=== PATIENT | female | born 1970 | race Caucasian/White ===

== ENCOUNTER 2017-01-20 07:50 | Emergency (ER) | payer SELFPAY ==
[2017-01-20 08:10] VITALS: BP 170/95
--- NOTE | 2017-01-20 08:42 | UC ---
Back Pain HPI - HPI Summary HPI Summary: Patient presents with sudden onset of lower back pain. She was at work and stepped down and could hardly walk. She states she had loser thoracic and upper lumbar back pain. She describes it as initially sharp, now more aching and improved. She denies incontinence of bowel or bladder, or saddle anesthesia associated with her pain. She states the pain is not radiating, and denies lower extremity weakness, numbness or tingling. She states the pain is worse with movement and improves as rest. - History of Current Complaint Chief Complaint: UCBackPain Stated Complaint: BACK INJURY Time Seen by Provider: 01/20/17 07:59 Hx Obtained From: Patient Hx Last Menstrual Period: 01/20/17 ?: No Onset/Duration: Sudden Onset Timing: Lasting Hours Severity Initially: Severe Severity Currently: Moderate Back Pain: Is Discrete @ - lower thoracic, upper lumbar at the location of the beltline. Character: Sharp, Aching, Spasmodic Aggravating: Movement, Lifting, Bending, Walking Alleviating: Rest, Position Associated Signs And Symptoms: Positive: Negative - Risk Factors AAA Risk Factors: Negative TAD Risk Factors: Negative Cauda Equina Risk Factors: Negative Epidural Abscess Risk Factors: Negative - Allergies/Home Medications Allergies/Adverse Reactions: Allergies Allergy/AdvReac Type Severity Reaction Status Date / Time Codeine Allergy Nausea And Verified 01/20/17 07:55 Vomiting Home Medications: Home Medications Levetiracetam [Keppra] 75 mg PO 01/20/17 [History] PMH/Surg Hx/FS Hx/Imm Hx Previously Healthy: Yes - Surgical History Surgical History: None - Family History Known Family History: Positive: Other - prostate cancer Family History: prostate cancer - Social History Alcohol Use: Occasionally Substance Use Type: None Smoking Status (MU): Never Smoked Tobacco Review of Systems Musculoskeletal: Arthralgia, Decreased ROM - lumbar back, Myalgia All Other Systems Reviewed And Are Negative: Yes Physical Exam Triage Information Reviewed: Yes Appearance: Pain Distress Vital Signs: Initial Vital Signs Temp 97.2 F 01/20/17 07:55 Pulse 89 01/20/17 07:55 Resp 18 01/20/17 07:55 Pulse Ox 98 01/20/17 07:55 Vital Signs Reviewed: Yes Eye Exam: Normal ENT Exam: Normal Neck exam: Normal Respiratory Exam: Normal Cardiovascular Exam: Normal Musculoskeletal: Positive: Other: - back; inspection,vertebra are in good aligment, without step-offs or deformities, no areas on eccymosis, edema, or erthema. Midline vertebra nontender on palpation. reproducible pain noted on the lateral musculature at the lumbar area. lower extremity strength testing equal 4/5, sensory no deficits noted. Skin Exam: Normal Back Pain Course/Dx - Course Course Of Treatment: Patient presents with complaints of nontraumatic low back pain. Xrays were read by radiologist as negative. Patient was neuro-vasc intact with no evidence of cuadia equina syndrome. She declined pain medication. Advised to take tylenol and advil alternating everey four hours, and RX flexeril as muscle relaxant. She was taken out of work for three days, and if her symtpoms persist beyond that she would need to follow up with her PCP. She verbalized understanding of all the discharge instructions and dischared home in stable condition. - Differential Dx/Diagnosis Differential Diagnosis/HQI/PQRI: Strain, Sprain, Other - vinnie pain Provider Diagnoses: back pain Discharge - Discharge Plan Condition: Stable Disposition: HOME Prescriptions: Cyclobenzaprine TAB* [Flexeril 10 MG TAB*] 10 mg PO TID PRN #14 tab MDD 3 PRN Reason: back pain Patient Education Materials: Acute Low Back Pain (ED) Forms: *Work Release Referrals: Bell Salazar NP [Primary Care Provider] -
--- NOTE | 2017-01-20 08:54 | RAD ---
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 FINDINGS: The vertebra are in normal alignment. No fracture is seen. There is mild loss of intervertebral disc height at the lower thoracic and lumbar lumbar spine. IMPRESSION: Mild degenerative changes of the spine without acute findings.
== END 2017-01-20 09:24 | disposition home or self-care (01) ==
LOC: UCEAST 07:50
DX: M54.5 Low back pain (principal); Z88.5 Allergy status to narcotic agent
CPT/HCPCS: 72110; 99212; G0463

== ENCOUNTER 2017-01-26 10:21 | Emergency (ER) | payer OTHER ==
[2017-01-26 11:18] LABS: Hematocrit 43 % (35-47); Hemoglobin 14.1 g/dl (12.0-16.0); Mean Corpuscular HGB Conc 33 g/dl (31-36); Mean Corpuscular Hemoglobin 27 pg (27-31); Mean Corpuscular Volume 82 fL (80-97); Mean Platelet Volume 9 um3 (7.4-10.4); Red Blood Count 5.22 10^6/ul (4.0-5.4); Red Cell Distribution Width 14 % (10.5-15); White Blood Count 7.6 10^3/ul (3.5-10.8)
[2017-01-26 11:33] LABS: Albumin 3.8 g/dL (3.2-5.2); BUN/Creatinine Ratio 21.4 (8-20); Calcium 9.1 mg/dL (8.6-10.3); EGFR African American 115.4 (>60); EGFR Non-African American 89.7 (>60); Globulin 3.6 g/dL (2-4); Potassium 3.9 mmol/L (3.5-5.0); Total Bilirubin 0.5 mg/dL (0.2-1.0); Total Protein 7.4 g/dL (6.4-8.9)
[2017-01-26 11:35] LABS: Troponin I 0.01 ng/mL (<0.04)
[2017-01-26 12:04] LABS: TSH (Thyroid Stimulating Horm) 4.46 mcIU/mL (0.34-5.60)
[2017-01-26 12:44] LABS: Urine Bilirubin Negative (Negative); Urine Glucose Negative (Negative); Urine Nitrite Negative (Negative)
[2017-01-26 14:22] VITALS: BP 189/98
--- NOTE | 2017-01-26 15:41 | ED ---
Merry Huber Thomas, scribed for Viral Yates MD on 01/26/17 at 1121 . Hypertension - HPI Summary HPI Summary: The pt is a 47 y/o F presenting to the ED after she measured her blood pressure this AM at 223/126. The patient made a visit to her PCP a week ago and she had an elevated BP, so her doctor told her to measure her BP daily. The patient reports that over the last week he she has been measuring her BP daily and it has been progressively increasing until today. Yesterday, she started Lisinopril 20mg. Her PCP performed an EKG, obtained bloodwork, and has ordered an [place] Kidneys. She complains of an aching lower back pain that began suddenly a week ago when she stepped out of a plane but has since improved a little. This pain is worsened on straight leg raises She initially presented to [facility] [place] for this pain and was prescribed muscle relaxers. An incidental finding at [facility] [place] was an elevated BP and she was referred to her PCP. She also complains of a tearing left shoulder pain that began two weeks ago and is worsened when she abducts her arm. She initially took Naproxen for this pain, but she was told to stop taking naproxen by her PCP a week ago due to its effects on her blood pressure. PMHx: epilepsy. PSHx: none. SHx: no smoking, occasional alcohol use, no illicit drug use. FHx: prostate CA. - History of Current Complaint Chief Complaint: EDHypertension Stated Complaint: LT SHOULDER PAIN Time Seen by Provider: 01/26/17 10:35 Hx Obtained From: Patient Hx Last Menstrual Period: 01/20/17 Onset/Duration: Started Weeks Ago - first BP reading 1 week ago, Still Present, Worse Since - progressively over the week Timing: Constant Reported Blood Pressure Prior To Arrival: 223/126 Aggravating Factor(s): Nothing Alleviating Factor(s): Nothing Associated Signs & Symptoms: Other: - POS: L shoulder pain, back pain Current Medications: Other - Started Lisinopril 20mg yesterday. - Allergies/Home Medications Allergies/Adverse Reactions: Allergies Allergy/AdvReac Type Severity Reaction Status Date / Time Codeine Allergy Nausea And Verified 01/20/17 07:55 Vomiting PMH/Surg Hx/FS Hx/Imm Hx Previously Healthy: No Respiratory History: Denies: Hx Cystic Fibrosis Neurological History: Reports: Other Neuro Impairments/Disorders - Hx epilepsy Infectious Disease History: No Infectious Disease History: Denies: Traveled Outside the [place] in Last 30 Days - Family History Known Family History: Positive: Other - Prostate CA Family History: prostate cancer - Social History Alcohol Use: Occasionally Substance Use Type: Reports: None Smoking Status (MU): Never Smoked Tobacco Review of Systems Negative: Fever Positive: Other - POS: elevated BP (223/126) Positive: Other - POS: L shoulder pain, low back pain All Other Systems Reviewed And Are Negative: Yes Physical Exam Triage Information Reviewed: Yes Vital Signs On Initial Exam: Initial Vitals Temp Pulse Resp BP Pulse Ox 97.1 F 91 18 178/110 96 01/26/17 10:24 01/26/17 10:24 01/26/17 10:24 01/26/17 10:24 01/26/17 10:24 Vital Signs Reviewed: Yes Appearance: Positive: Well-Appearing, No Pain Distress, Obese Skin: Positive: Warm, Skin Color Reflects Adequate Perfusion, Dry Head/Face: Positive: Normal Head/Face Inspection Eyes: Positive: Normal ENT: Positive: Normal ENT inspection Neck: Positive: Supple, Nontender Respiratory/Lung Sounds: Positive: Clear to Auscultation, Breath Sounds Present Cardiovascular: Positive: RRR Abdomen Description: Positive: Nontender, Soft Bowel Sounds: Positive: Present Musculoskeletal: Positive: Other - She is tender at the deltoid insertion on the left. She has right paraspinal tenderness with SLR. Neurological: Positive: Normal Psychiatric: Positive: Normal, Affect/Mood Appropriate Diagnostics - Vital Signs Vital Signs Temp Pulse Resp BP Pulse Ox 01/26/17 10:45 97.9 F 94 15 214/91 94 01/26/17 10:24 97.1 F 91 18 178/110 96 - Laboratory Lab Results: Lab Results 01/26/17 01/26/17 01/26/17 Range/Units 11:00 11:00 12:25 WBC 7.6 (3.5-10.8) 10^3/ul RBC 5.22 (4.0-5.4) 10^6/ul Hgb 14.1 (12.0-16.0) g/dl Hct 43 (35-47) % MCV 82 (80-97) fL MCH 27 (27-31) pg MCHC 33 (31-36) g/dl RDW 14 (10.5-15) % Plt Count 254 (150-450) 10^3/ul MPV 9 (7.4-10.4) um3 Neut % (Auto) 62.2 (38-83) % Lymph % (Auto) 28.2 (25-47) % [place] % (Auto) 7.4 (1-9) % Eos % (Auto) 1.6 (0-6) % Baso % (Auto) 0.6 (0-2) % Absolute Neuts (auto) 4.7 (1.5-7.7) 10^3/ul Absolute Lymphs (auto) 2.1 (1.0-4.8) 10^3/ul Absolute Monos (auto) 0.6 (0-0.8) 10^3/ul Absolute Eos (auto) 0.1 (0-0.6) 10^3/ul Absolute Basos (auto) 0 (0-0.2) 10^3/ul Absolute Nucleated RBC 0 10^3/ul Nucleated RBC % 0 Sodium 136 (133-145) mmol/L Potassium 3.9 (3.5-5.0) mmol/L Chloride 104 (101-111) mmol/L Carbon Dioxide 27 (22-32) mmol/L Anion Gap 5 (2-11) mmol/L BUN 15 (6-24) mg/dL Creatinine 0.70 (0.51-0.95) mg/dL Est GFR ( Amer) 115.4 (>60) Est GFR (Non-Af Amer) 89.7 (>60) BUN/Creatinine Ratio 21.4 H (8-20) Glucose 100 (70-100) mg/dL Calcium 9.1 (8.6-10.3) mg/dL Total Bilirubin 0.50 (0.2-1.0) mg/dL AST 14 (13-39) U/L ALT 11 (7-52) U/L Alkaline Phosphatase 63 (34-104) U/L Troponin I 0.01 (<0.04) ng/mL Total Protein 7.4 (6.4-8.9) g/dL Albumin 3.8 (3.2-5.2) g/dL Globulin 3.6 (2-4) g/dL Albumin/Globulin Ratio 1.1 (1-3) TSH 4.46 (0.34-5.60) mcIU/mL Urine Color Yellow Urine Appearance Clear Urine pH 6.0 (5-9) Ur Specific [place] 1.023 (1.010-1.030) Urine Protein Negative (Negative) Urine Ketones Negative (Negative) Urine Blood Negative (Negative) Urine Nitrate Negative (Negative) Urine Bilirubin Negative (Negative) Urine Urobilinogen Negative (Negative) Ur Leukocyte Esterase Negative (Negative) Urine Glucose Negative (Negative) Urine Ascorbic Acid * H (Negative) Result Diagrams: 01/26/17 11:00 01/26/17 11:00 Lab Statement: Any lab studies that have been ordered have been reviewed, and results considered in the medical decision making process. - EKG 10:41 Cardiac Rate: NL - 93 BPM EKG Interpretation: NSR Hypertension Course/Dx - Course Course Of Treatment: Ms. Du presented concerned about her blood pressure that has been running high. She was started on lisinopril recently but it has continued to go up. She is asymptomatic. Her W/U was WNL here and her blood pressures although running high, were not urgent and I will increase her lisinopril until she can F/U with her PMD on Sun. - Diagnoses Provider Diagnoses: Hypertension Discharge - Discharge Plan Condition: Stable Disposition: HOME Patient Education Materials: Hypertension (ED) Referrals: Bell Salazar NP [Primary Care Provider] - Gal Machuca MD [Medical Doctor] - 5 Days Additional Instructions: Follow up with your primary care provider as scheduled on Sunday. Increase your Lisinopril to 40mg daily. Return to the emergency department for any new or worsening symptoms. The documentation as recorded by the Merry chino Thomas accurately reflects the service I personally performed and the decisions made by me, Viral Yates MD.
== END 2017-01-26 14:21 | disposition home or self-care (01) ==
LOC: ED 10:21
DX: I10 Essential (primary) hypertension (principal); G40.909 Epilepsy, unspecified, not intractable, without status epilepticus
CPT/HCPCS: 36415; 80053; 81003; 84443; 84484; 85025; 93005; 99282